=== PATIENT | male | born 1965 | race Caucasian/White ===

== ENCOUNTER 2017-08-26 10:50 | Outpatient (RCR) | payer BC, MEDICAID ==
[~2017-08-26 10:50] MED LIST: DCS100C PO; HYDR-3583 PO; IBP800T PO; PEG250PW PO; WHEA730P PO
== END 2017-09-10 | disposition home or self-care (01) ==
LOC: CARD 10:50
PROVIDERS: ATTEND Internal Medicine
DX: R00.2 Palpitations (principal)
CPT/HCPCS: 93225; 93226

== ENCOUNTER → 2023-01-15 | Outpatient (CLI) | payer MEDICAID, OTHER | LOC: CARD 10:20 | PROVIDERS: ATTEND Nurse Practitioner Family | DX: R00.2 Palpitations (principal) | CPT/HCPCS: 93005 ==